=== PATIENT | male | born 1980 | race Caucasian/White ===

== ENCOUNTER 2020-06-18 16:23 | Emergency (ER) | payer MEDICAID ==
[~2020-06-18] VITALS: Ht 200.7 cm; Wt 97.5 kg
[2020-06-18 16:49] VITALS: BP 140/93
== END 2020-06-18 18:09 | disposition home or self-care (01) ==
LOC: ER 16:23
DX: S62.314A Displaced fracture of base of fourth metacarpal bone, right hand, initial encounter for closed fracture (principal); W22.8XXA Striking against or struck by other objects, initial encounter; Y93.89 Activity, other specified; Y92.89 Other specified places as the place of occurrence of the external cause; Y99.8 Other external cause status
CPT/HCPCS: 29125; 73130